=== PATIENT | female | born 1995 ===

== ENCOUNTER 2020-03-15 20:14 | Emergency (ER) | payer OTHER ==
[~2020-03-15] VITALS: Ht 157.5 cm; Wt 51.3 kg
[2020-03-15] MEDS ORDERED: MORGIDOX100 MG (20:25)
[2020-03-15] MEDS ORDERED: MIRALAX17 GM PO (23:39)
== END 2020-03-16 00:07 | disposition home or self-care (01) ==
LOC: ER 20:14
DX: R10.31 Right lower quadrant pain (principal); K59.09 Other constipation
CPT/HCPCS: 74177; Q9965

== ENCOUNTER → 2020-08-29 | Emergency (ER) | payer OTHER ==
[~2020-08-29] VITALS: Ht 157.5 cm; Wt 53.1 kg
[~2020-08-29] MED LIST: ALBUTEROL0.63 MG/3; MIRALAX17 GM PO; MORGIDOX100 MG
== END | disposition left against medical advice (07) ==
LOC: ER 23:12
DX: Z53.20 Procedure and treatment not carried out because of patient's decision for unspecified reasons (principal)

== ENCOUNTER 2021-01-01 20:22 | Emergency (ER) | payer OTHER ==
[~2021-01-01] VITALS: Ht 157.5 cm; Wt 54.4 kg
[2021-01-01] MEDS ORDERED: PRENATAL CAPLE1 EAC1 PO (22:31)
== END 2021-01-01 22:43 | disposition home or self-care (01) ==
LOC: ER 20:22
DX: O26.851 Spotting complicating pregnancy, first trimester (principal); Z3A.01 Less than 8 weeks gestation of pregnancy

== ENCOUNTER 2021-10-29 16:06 | Emergency (ER) | payer OTHER ==
[~2021-10-29] VITALS: Ht 157.5 cm; Wt 56.2 kg
[~2021-10-29 16:06] MED LIST changes: +PRENATAL CAPLE1 EAC1 PO
[2021-10-29] MEDS ORDERED: ZYRTEC10 MG PO (16:42)
== END 2021-10-29 19:27 | disposition home or self-care (01) ==
LOC: ER 16:06
DX: A49.3 Mycoplasma infection, unspecified site (principal); Z88.2 Allergy status to sulfonamides; Z20.822 Contact with and (suspected) exposure to COVID-19